=== PATIENT | female | born 1945 | race Caucasian/White ===

== ENCOUNTER → 2022-01-04 | Outpatient (CLI) | payer BC, MEDICARE ==
[2022-01-04 10:04] VITALS: BP 183/82; PULSE 73; RESP 16; TEMP 97.7
== END ==
LOC: PROCWHC3 08:21
PROVIDERS: ATTEND Internal Medicine Geriatric Medicine
DX: K50.90 Crohn's disease, unspecified, without complications (principal); Z93.2 Ileostomy status; E78.5 Hyperlipidemia, unspecified; Z88.5 Allergy status to narcotic agent
CPT/HCPCS: 99213

== ENCOUNTER → 2022-03-15 | Outpatient (CLI) | payer MEDICARE ==
--- NOTE | 2022-03-16 16:24 | BD ---
EXAMINATION TYPE: Axial Bone Density DATE OF EXAM: 03/15/2022 COMPARISON: NONE CLINICAL HISTORY: 76 years year old Female. ICD-10 CODE: M81.0 osteoporosis Height: 65.5 Weight: 186.5 FRAX RISK QUESTIONS: Alcohol (3 or more units per day): NO Family History (Parent hip fracture): YES, MOTHER Glucocorticoids (More than 3mos): NO History of Fracture in Adulthood: NO Secondary Osteoporosis: 1. Type 1 Diabetes: NO 2. Hyperthyroidism: NO 3. Menopause before 45: YES 4. Malnutrition: NO 5. Chronic liver disease: NO Rheumatoid Arthritis: NO Current Tobacco Use: NO RISK FACTORS HISTORY OF: Hip Fracture (Right/Left): NO Spine Fracture: NO History of Wrist Fracture: NO Surgery to Spine/Hip(right/left)/Wrist (right/left): NO Family History of Osteoporosis: NO Active: YES Diet low in dairy products/other sources of calcium: NO Postmenopausal woman: YES Take estrogen and/or progesterone medications: NO Lost more than 2 inches in height since high school: YES Frequent falls: NO Poor Health: NO Hyperparathyroidism: NO Adrenal Insufficiency: NO MEDICATIONS: Prednisone or other steroids: NO Thyroid Medications: NO Osteoporosis Medications: NO Additional Medications: VIT D, Additional History: EXAM MEASUREMENTS: Bone mineral densitometry was performed using the [employer]. Bone mineral density as measured about the Lumbar spine is: ----- L1-L4(G/cm2): 1.294 T Score Values are as follows: ----- L1: 0.0 ----- L2: 0.8 ----- L3: 0.0 ----- L4: 2.7 ----- L1-L4: 1.0 BASELINE STUDY Bone mineral density about the R hip (g/cm2): 0.871 Bone mineral density about the L hip (g/cm2): 0.954 T Score values are as follows: -----R Neck: -1.2 -----L Neck: -0.6 -----R Total: -1.6 -----L Total: -1.4 BASELINE STUDY FRAX%s: The graph provided illustrates a 18.7% chance for a major osteoporotic fx and a 9.2% chance f or the hips probability for fx in 10 years time. IMPRESSION: Osteopenia (T Score between -2.5 and -1). There is slightly increased risk of fracture and the patient may be considered for treatment. Re-Screen 2-5 years. NOTE: T-SCORE=SD OF THE YOUNG ADULT MEAN.
== END | disposition home or self-care (01) ==
LOC: RADBDWWP 08:33
PROVIDERS: ATTEND Internal Medicine Geriatric Medicine
DX: M85.89 Other specified disorders of bone density and structure, multiple sites (principal)
CPT/HCPCS: 77080

== ENCOUNTER → 2023-09-14 | Outpatient (CLI) | payer MEDICARE ==
--- NOTE | 2023-09-17 11:27 | MR ---
EXAMINATION TYPE: MR brain wo/w con DATE OF EXAM: 09/14/2023 2:29 PM COMPARISON: None HISTORY: Fell and hit head, TIA. CONTRAST: Patient received 8 mL intravenous Gadavist gadolinium contrast. Multiplanar and multispin-echo imaging of the brain was performed . Pre and post contrast enhanced i mages are obtained. The ventricles, basal cisterns and sulci overlying the cerebral convexities are mildly enlarged. There is evidence of mild periventricular white matter ischemic demyelination. Remote deep white matter insults are also noted. No acute edema is seen on diffusion weighted imaging. There is no evidence for midline shift or mass effect. Acute intracranial hemorrhage or extra-axial collection is not evident. No enhancing lesions are seen. The paranasal sinuses and mastoid air cells are well-aerated. IMPRESSION: Age-related atrophic and chronic small vessel ischemic change. No acute intracranial process at this time. No enhancing lesions are seen.
== END | disposition home or self-care (01) ==
LOC: RADMRIMAIN 13:34
PROVIDERS: ATTEND Internal Medicine Geriatric Medicine
DX: I67.82 Cerebral ischemia (principal); G31.1 Senile degeneration of brain, not elsewhere classified; G45.9 Transient cerebral ischemic attack, unspecified
CPT/HCPCS: 70553; A9585

== ENCOUNTER → 2023-09-16 | Outpatient (CLI) | payer MEDICARE ==
--- NOTE | 2023-09-16 18:29 | NM ---
EXAMINATION TYPE: NM bone scan whole body DATE OF EXAM: 09/16/2023 COMPARISON: Radiograph 09/10/2023 CLINICAL INDICATION: Female, 77 years old with history of M48.062 spinal stenosis; low back pain. TECHNIQUE: Delayed whole-body scanning was performed following the injection of 25.6 mCi Tc 99m MDP. Images acquired 5.25 hours post injection. FINDINGS: There is S-shaped scoliosis of the lumbar spine. Degenerative tracer activity noted at the bilateral shoulders, base of the thumbs, MCP joints, and extensive throughout the mid and hindfoot regions. The re is also prominent degenerative tracer activity at the left hip. Mild scattered within the knees. Prominent degenerative tracer activity involving the lower lumbar spine. IMPRESSION: 1. Prominent degenerative tracer activity in the lower lumbar spine could reflect facet arthropathy a nd/or degenerative disc disease or L5 spondylolysis. CT for more detailed assessment of the bony kurt deandre if clinically indicated. 2. Additional scattered degenerative tracer activity as outlined above. Also seen prominently within the bilateral mid to hindfoot regions.
== END | disposition home or self-care (01) ==
LOC: RADNMMAIN 07:24
PROVIDERS: ATTEND Physical Medicine & Rehabilitation
DX: M48.062 Spinal stenosis, lumbar region with neurogenic claudication (principal); M43.16 Spondylolisthesis, lumbar region; M41.26 Other idiopathic scoliosis, lumbar region; M51.26 Other intervertebral disc displacement, lumbar region; M47.816 Spondylosis without myelopathy or radiculopathy, lumbar region; M16.12 Unilateral primary osteoarthritis, left hip; S32.030A Wedge compression fracture of third lumbar vertebra, initial encounter for closed fracture; X58.XXXA Exposure to other specified factors, initial encounter
CPT/HCPCS: 78306; A9503

== ENCOUNTER → 2023-12-25 | Outpatient (CLI) | payer MEDICARE ==
--- NOTE | 2023-12-25 16:02 | MR ---
EXAMINATION TYPE: MR brain wo/w con DATE OF EXAM: 12/25/2023 COMPARISON: 09/14/2023 HISTORY: Memory loss. CONTRAST: Performed utilizing 8 mL intravenous Gadavist gadolinium contrast. TECHNIQUE: Multiplanar, multiecho imaging on a 3.0 Kelly magnet is performed through the brain. Stud y is performed within 24 hours of arrival to the hospital. The craniovertebral junction is normal. The pituitary is normal. Diffusion-weighted imaging is performed. No abnormal hyperintensity is present to suggest an acute i ntracranial infarct or acute ischemic change. No suspicious signal abnormality is evident. No abnormal enhancement is evident. Ventricles and sulci are prominent for the patient age. IMPRESSION: 1. No suspicious acute intracranial changes. 2. Chronic age-related changes.
== END | disposition home or self-care (01) ==
LOC: RADMRIMAIN 14:26
PROVIDERS: ATTEND Internal Medicine Geriatric Medicine
DX: R41.3 Other amnesia (principal)
CPT/HCPCS: 70553; A9585

== ENCOUNTER → 2024-06-11 | Outpatient (CLI) | payer MEDICARE ==
--- NOTE | 2024-06-11 14:56 | CT ---
EXAMINATION TYPE: CT brain wo con CT DLP: 995.0 mGycm, Automated exposure control for dose reduction was used. DATE OF EXAM: 06/11/2024 2:11 PM COMPARISON: MRI brain 12/25/2023, 09/14/2023 CLINICAL INDICATION:Female, 78 years old with history of R5 5 SYNCOPE AND COLLAPSE, syncope, fall TECHNIQUE: Brain: Multiple axial CT images of the brain were obtained without IV contrast. . Coronal and sagitta l reformats reviewed. FINDINGS: Brain: Extra-axial spaces: No abnormal extra-axial fluid collections. Ventricular system: Within normal limits Cerebral parenchyma: No acute intraparenchymal hemorrhage or mass effect. The arita-white junction is well differentiated. Scattered hypoattenuating areas are seen within the white matter. Cerebellum: Unremarkable. Mass effect: No evidence of midline shift. Intracranial vasculature: Atherosclerotic calcifications of the intracranial vessels. Soft tissues: Normal. Calvarium/osseous structures: No depressed skull fracture. Benign hyperostosis frontalis noted. Paranasal sinuses and mastoid air cells: Mastoid air cells are clear. Moderate mucosal thickening of the left maxillary sinus with minimal mucosal thickening of the anterior left ethmoid sinus. Partial visualization of likely right inferior maxillary sinus 1.2 cm mucous retention cyst. Visualized orbits: Bilateral aphakia IMPRESSION: 1. No acute intracranial process. 2. Nonspecific white matter changes, likely secondary to chronic small vessel ischemic disease. 3. Paranasal sinus mucosal disease. Most prominent within the left maxillary sinus. [facility], , 06/11/2024 2:21 PM
--- NOTE | 2024-06-11 15:01 | US ---
EXAMINATION TYPE: US carotid duplex BILAT DATE OF EXAM: 06/11/2024 COMPARISON: NONE CLINICAL INDICATION: Female, 78 years old with history of R55 SYNCOPE AND COLLAPSE; dizzy and near sy ncope TECHNIQUE: Grayscale, color Doppler and spectral Doppler evaluation of the bilateral carotid systems and vertebral arteries.Indirect Doppler criteria was utilized. FINDINGS: EXAM MEASUREMENTS: RIGHT: Peak Systolic Velocity (PSV) cm/sec ----- Right CCA: 64.8 ----- Right ICA: 123.0 ----- Right ECA: 82.5 ICA/CCA ratio: 1.9 RIGHT: End Diastole cm/sec ----- Right CCA: 12.6 ----- Right ICA: 33.1 ----- Right ECA: 0.0 LEFT: Peak Systolic Velocity (PSV) cm/sec ----- Left CCA: 78.8 ----- Left ICA: 94.1 ----- Left ECA: 87.6 ICA/CCA ratio: 1.2 LEFT: End Diastole cm/sec ----- Left CCA: 16.4 ----- Left ICA: 20.8 ----- Left ECA: 7.1 VERTEBRALS (direction of flow): Right Vertebral: Retrograde Left Vertebral: Antegrade Rhythm: Normal STATE FIRE MARSHAL NOTES: Mild homogeneous plaque with no stenosis seen IMPRESSION: Right: Less than 50% stenosis of the carotid bifurcation. Normal (no stenosis)=ICA PSV < 125 cm/s: ra yvonne < 2.0: ICA EDV<40 cm/s. Left: Less than 50% stenosis of the carotid bifurcation. Normal (no stenosis)=ICA PSV < 125 cm/s: rat io < 2.0: ICA EDV<40 cm/s. Criteria for Assigning % of Stenosis / Diameter reduction (Estimation based on the indirect measurements of the internal carotid artery velocities (ICA PSV). 1. Normal (no stenosis)=ICA PSV < 125 cm/s: ratio < 2.0: ICA EDV<40 cm/s. 2. Less than 50% stenosis=ICA PSV < 125 cm/s: ratio < 2.0: ICA EDV<40 cm/s. 3. 50 to 69% stenosis=ICA PSV of 125 to 230 cm/s: ration 2.0 ? 4.0: ICA EDV 40-100 cm/s. 4. Greater than 70% stenosis to near occlusion= ICA PSV > 230 cm/s: ratio > 4.0: ICA EDV > 100 cm/s. 5. Near occlusion= ICA PSV velocities may be low or undetectable: variable ratio and ICA EDV. 6. Total occlusion=unable to detect flow. [facility], , 06/11/2024 2:59 PM
== END | disposition home or self-care (01) ==
LOC: RADUSWWP 13:19
PROVIDERS: ATTEND Internal Medicine Geriatric Medicine
CPT/HCPCS: 70450; 93880

== ENCOUNTER → 2024-06-16 | Outpatient (CLI) | payer MEDICARE ==
--- NOTE | 2024-06-17 09:48 | CA ---
Transthoracic Echo Report Name: Jennifer Jaimes Age: 78 Gender: F : 1945 Exam Date: 06/16/2024 13:46 Exam Location: [facility] Ht (in): 68 Wt (lb): 168 Ordering Physician: Donovan Velazco MD Attending/Referring Phys: [employer]che Operator Luisa Brewer RDCS Procedure CPT: Indications: r55 Cardiac Hx: Technical Quality: Fair Contrast 1: Total Dose (mL): Contrast 2: Total Dose (mL): MEASUREMENTS (Male / Female) Normal Values 2D ECHO LV Diastolic Diameter PLAX 5.2 cm 4.2 - 5.9 / 3.9 - 5.3 cm LV Systolic Diameter PLAX 3.8 cm IVS Diastolic Thickness 1.0 cm 0.6 - 1.0 / 0.6 - 0.9 cm LVPW Diastolic Thickness 1.1 cm 0.6 - 1.0 / 0.6 - 0.9 cm LV Relative Wall Thickness 0.4 RV Internal Dim ED PLAX 1.2 cm LA Systolic Diameter LX 3.8 cm 3.0 - 4.0 / 2.7 - 3.8 cm LV Diastolic Volume MOD BP 77.4 cm??? 67 - 155 / 56 - 104 cm??? LV Systolic Volume MOD BP 26.8 cm??? 22 - 58 / 19 - 49 cm??? LV Ejection Fraction MOD BP 65.4 % >= 55 % LV Cardiac Index MOD BP 1527.8 cm???/min???m??? LV Diastolic Volume MOD 4C 82.2 cm??? LV Systolic Volume MOD 4C 28.7 cm??? LV Ejection Fraction MOD 4C 65.1 % LV Cardiac Index MOD 4C 1615.2 cm???/min???m??? LV Diastolic Length 4C 6.4 cm LV Systolic Length 4C 5.6 cm LV Diastolic Volume MOD 2C 73.5 cm??? LV Systolic Volume MOD 2C 24.8 cm??? LV Ejection Fraction MOD 2C 66.2 % LV Cardiac Index MOD 2C 1467.3 cm???/min???m??? LV Diastolic Length 2C 6.5 cm LV Systolic Length 2C 5.8 cm LA Volume 75.5 cm??? 18 - 58 / 22 - 52 cm??? LA Volume Index 39.2 cm???/m??? 16 - 28 cm???/m??? M-MODE Aortic Root Diameter MM 3.5 cm LA Systolic Diameter MM 4.0 cm LA Ao Ratio MM 1.1 AV Cusp Separation MM 2.1 cm DOPPLER AI Peak Velocity 412.2 cm/s AI Peak Gradient 68.0 mmHg AI Pressure Half Time 1030.9 ms MV Area PHT 2.6 cm??? Mitral E Point Velocity 53.5 cm/s Mitral A Point Velocity 76.6 cm/s Mitral E to A Ratio 0.7 MV Deceleration Time 294.2 ms TR Peak Velocity 215.7 cm/s TR Peak Gradient 18.6 mmHg Right Ventricular Systolic Press 28.6 mmHg FINDINGS Left Ventricle Left ventricular ejection fraction is estimated at 55-60 %. Mildly increased posterior wall thickness. Left ventricular cavity size normal. Normal left ventricular systolic function with no obvious regional wall motion abnormalities. Right Ventricle Normal right ventricular size and function. Right ventricular systolic pressure within normal limits. Right Atrium Mild right atrial dilatation. Left Atrium Moderately increased left atrial volume. Mitral Valve Mitral valve thickened. Mild prolapse of both mitral valve leaflets. Mild-to- moderate mitral regurgitation. Aortic Valve Trileaflet aortic valve. No aortic stenosis. Mild aortic regurgitation. Tricuspid Valve Structurally normal tricuspid valve. Mild tricuspid regurgitation. No tricuspid stenosis. Pulmonic Valve Structurally normal pulmonic valve. Trace pulmonic regurgitation. No pulmonic stenosis. Pericardium No pericardial or pleural effusion. Aorta Normal size aortic root and proximal ascending aorta. CONCLUSIONS Normal LV size and systolic function. Mild prolapse of both mitral leaflets with mild to moderate regurgitation. Aortic valve sclerosis with mild aortic regurgitation. Mild tricuspid regurgitation but no pulmonary hypertension. No pericardial effusion Previewed by: Dr. Lizzie Colon MD (Electronically Signed) Final Date: 17 June 2024 09:47
== END | disposition home or self-care (01) ==
LOC: RADECHMAIN 13:29
PROVIDERS: ATTEND Internal Medicine Geriatric Medicine
CPT/HCPCS: 93306

== ENCOUNTER → 2024-07-16 | Outpatient (CLI) | payer MEDICARE ==
--- NOTE | 2024-07-16 13:07 | XR ---
EXAMINATION TYPE: XR chest 2V DATE OF EXAM: 07/16/2024 CLINICAL HISTORY: Cough TECHNIQUE: Frontal and lateral views of the chest are obtained. COMPARISON: None FINDINGS: Hyperinflation compatible with COPD. There is no focal air space opacity, pleural effusion , or pneumothorax seen. The cardiac silhouette size is within normal limits. The osseous structure s are intact. IMPRESSION: No acute cardiopulmonary process. [facility], , 07/16/2024 1:05 PM
== END | disposition home or self-care (01) ==
LOC: RADXRMAIN 12:13
PROVIDERS: ATTEND Internal Medicine Geriatric Medicine
DX: R05.9 Cough, unspecified (principal)
CPT/HCPCS: 71046

== ENCOUNTER 2024-08-22 23:48 | Observation (INO) | payer MEDICARE ==
--- NOTE | 2024-08-23 01:37 | ED ---
General Adult HPI - General Source: patient, EMS Mode of arrival: EMS <Michelle Monk - Last Filed: 08/23/24 01:37> - General Source: patient, EMS Mode of arrival: EMS Limitations: no limitations <Shira Arellano - Last Filed: 08/23/24 17:01> - General Chief complaint: Nausea/Vomiting/Diarrhea Stated complaint: Vomitting Time Seen by Provider: 08/23/24 01:37 - History of Present Illness Initial comments: 78-year-old female presenting with chief complaint of nausea and vomiting. Symptoms started around 8 PM today. No chest pain or difficulty breathing. No hematemesis. No fever. (Michelle Monk) 78-year-old female presents to the emergency department for evaluation of nausea and vomiting. Patient reports that started around 8 PM. She has a history of an ostomy and has been having normal output prior to the vomiting she states that she has had some decrease in output since she started vomiting which she believes is due to her not eating or drinking. She denies any focal abdominal pain. She does note that she had pain between her shoulder blades which is since subsided. Denies any recent fever, chills. (Shira Arellano) - Related Data Home Medications Medication Instructions Recorded Confirmed Acetaminophen-Codeine 300-30mg 1 tab PO Q6H PRN 08/23/24 08/23/24 [Tylenol w/codeine #3] Donepezil [Aricept] 5 mg PO HS 08/23/24 08/23/24 Pregabalin [Lyrica] 75 mg PO BID 08/23/24 08/23/24 Rivastigmine Tartrate 1.5 mg PO BID-W/MEALS 08/23/24 08/23/24 [Rivastigmine] busPIRone HCL [Buspar] 7.5 mg PO TID 08/23/24 08/23/24 Allergies Allergy/AdvReac Type Severity Reaction Status Date / Time propoxyphene [From Darvon] Allergy Anaphylaxis Verified 08/23/24 10:27 Review of Systems ROS Other: All systems not noted in ROS Statement are negative. <Michelle Monk - Last Filed: 08/23/24 01:37> ROS Other: All systems not noted in ROS Statement are negative. <Shira Arellano - Last Filed: 08/23/24 17:01> ROS Statement: Those systems with pertinent positive or pertinent negative responses have been documented in the HPI. Past Medical History Additional Past Medical History / Comment(s): Chrons History of Any Multi-Drug Resistant Organisms: None Reported Past Surgical History: Adenoidectomy, Tonsillectomy Past Anesthesia/Blood Transfusion Reactions: No Reported Reaction Past Psychological History: No Psychological Hx Reported Smoking Status: Never smoker Past Alcohol Use History: None Reported Past Drug Use History: None Reported <Michelle Monk - Last Filed: 08/23/24 01:37> General Exam <Michelle Monk - Last Filed: 08/23/24 01:37> Limitations: no limitations General appearance: alert, in no apparent distress Head exam: Present: atraumatic, normocephalic, normal inspection Eye exam: Present: normal appearance, PERRL, EOMI. Absent: scleral icterus, conjunctival injection, periorbital swelling ENT exam: Present: normal exam, mucous membranes moist Neck exam: Present: normal inspection. Absent: tenderness, meningismus, lym phadenopathy Respiratory exam: Present: normal lung sounds bilaterally. Absent: respiratory distress, wheezes, rales, rhonchi, stridor Cardiovascular Exam: Present: normal heart sounds. Absent: normal rhythm GI/Abdominal exam: Present: soft. Absent: distended, tenderness, guarding, rebound, rigid Extremities exam: Present: normal inspection, full ROM, normal capillary refill. Absent: tenderness, pedal edema, joint swelling, calf tenderness Neurological exam: Present: alert, oriented X3 Psychiatric exam: Present: normal affect, normal mood Skin exam: Present: warm, dry, intact, normal color. Absent: rash <Shira Arellano - Last Filed: 08/23/24 17:01> - General Exam Comments Initial Comments: Visual Physical Exam Vital signs reviewed General: Well-appearing, nontoxic, no acute distress. Head: Normocephalic, atraumatic Eyes: PERRLA, EOMI ENT: Airway patent Chest: Nonlabored breathing Skin: No visual rash, normal skin tone Neuro: Alert and oriented 3 Musculoskeletal: No gross abnormalities (Michelle Monk) Course Vital Signs 08/22/24 08/23/24 08/23/24 23:57 07:00 09:00 Temperature 97.5 F L 98 F 98 F Pulse Rate 98 61 67 Respiratory 20 16 16 Rate Blood Pressure 158/60 114/74 116/78 O2 Sat by Pulse 97 100 100 Oximetry 08/23/24 08/23/24 12:00 15:35 Temperature 98 F Pulse Rate 61 64 Respiratory 16 16 Rate Blood Pressure 105/57 153/69 O2 Sat by Pulse 100 99 Oximetry Medical Decision Making <Michelle Monk - Last Filed: 08/23/24 01:37> - Lab Data Result diagrams: 08/23/24 02:10 08/23/24 02:10 <Shira Arellano - Last Filed: 08/23/24 17:01> - Medical Decision Making I performed the quick note portion of this visit, electronically signed Michelle Monk PA-C (Michelle Monk) Was pt. sent in by a medical professional or institution ([facility], SKILLS AUDITOR, urgent care, hospital, or [facility]...) When possible be specific @ -No Did you speak to anyone other than the patient for history (EMS, parent, family, police, friend...)? What history was obtained from this source @ -No Did you review nursing and triage notes (agree or disagree)? Why? @ -I reviewed and agree with nursing and triage notes Were old charts reviewed (outside hosp., previous admission, EMS record, old EKG, old radiological studies, urgent care reports/EKG's, [facility] records)? Report findings @ -No old charts were reviewed Differential Diagnosis (chest pain, altered mental status, abdominal pain women, abdominal pain men, vaginal bleeding, weakness, fever, dyspnea, syncope, headache, dizziness, GI bleed, back pain, seizure, CVA, palpatations, mental health, musculoskeletal)? @ -Gastroenteritis, COVID, influenza, RSV, cholecystitis, this list is not all inclusive EKG interpreted by me (3pts min.). @ -EKG at 717 shows irregular rhythm rate of 67, QRS 25, QTQTc 439/455 P waves present Repeat EKG 758 shows irregular rhythm rate 78, QRS 103, QTQTc [id number] findings concerning for A-fib without distinct P waves X-rays interpreted by me (1pt min.). @ -Chest x-ray shows Subtle increased airspace opacities in the right lung base CT interpreted by me (1pt min.). @ -CT chest shows no evidence of acute PE, no evidence of focal consolidation U/S interpreted by me (1pt. min.). @ -None done What testing was considered but not performed or refused? (CT, X-rays, U/S, la bs)? Why? @ -None What meds were considered but not given or refused? Why? @ -None Did you discuss the management of the patient with other professionals (professionals i.e. , PA, SKILLS AUDITOR, lab, RT, psych nurse, social insurance analyst, event operations manager, teacher, dispatch officer, welfare case worker)? Give summary @ -Management discussed with Dr. Castro with [facility] was accepting of the admission as Dr. Velazco is off Was smoking cessation discussed for >3mins.? @ -No Was critical care preformed (if so, how long)? @ -No Were there social determinants of health that impacted care today? How? (Homelessness, low income, unemployed, alcoholism, drug addiction, transportation, low edu. Level, literacy, decrease access to med. care, [facility], rehab)? @ -No Was there de-escalation of care discussed even if they declined (Discuss DNR or withdrawal of care, Hospice)? DNR status @ -No What co-morbidities impacted this encounter? (DM, HTN, Smoking, COPD, CAD, Cancer, CVA, ARF, Chemo, Hep., AIDS, mental health diagnosis, sleep apnea, morbid obesity)? @ -None Was patient admitted / discharged? Hospital course, mention meds given and route, prescriptions, significant lab abnormalities, going to OR and other pertinent info. @ -Admitted. Patient presented to the emergency department for evaluation of pain between her shoulder blades, nausea, vomiting. Laboratory studies were obtained and the patient was in the waiting room There is no significant leukocytosis, hemoglobin stable; CMP essentially unremarkable; UA shows 1+ ketones, small leukocyte esterase, 7 WBCs, patient is not having any urinary symptoms at this time. Following my evaluation in the a.m. patient reporting pain between her shoulder blades and into her chest therefore an EKG was performed along with a troponin. Initial troponin was negative EKG was concerning for new onset A-fib and therefore the patient was started on low-dose heparin. She was also tested for COVID, influenza, RSV which were negative. Chest x-ray shows increased airspace opacities in the right lung base. CT chest for PE was performed which shows no evidence of any this airspace opacity does not appear to be present on the CT. patient will be admitted for observation for new onset A-fib and evaluation by cardiology. The case was discussed with [facility] who is accepting of the admission. Case discussed with Dr. Rangel Undiagnosed new problem with uncertain prognosis? @ -No Drug Therapy requiring intensive monitoring for toxicity (Heparin, Nitro, Insulin, Cardizem)? @ -Heparin Were any procedures done? @ -No Diagnosis/symptom? @ -New onset A-fib Acute, or Chronic, or Acute on Chronic? @ -Acute Uncomplicated (without systemic symptoms) or Complicated (systemic symptoms)? @ -complicated Side effects of treatment? @ -No Exacerbation, Progression, or Severe Exacerbation? @ -No Poses a threat to life or bodily function? How? (Chest pain, [place], [place], pneumonia, PE, COPD, DKA, ARF, appy, cholecystitis, CVA, Diverticulitis, Homicidal, Suicidal, threat to staff... and all critical care pts) @ -No (Shira Arellano) - Lab Data Lab Results 08/23/24 08/23/24 08/23/24 Range/Units 02:10 02:10 02:20 WBC 9.5 (3.8-10.6) k/uL RBC 4.25 (3.80-5.40) m/uL Hgb 12.7 (11.4-16.0) gm/dL Hct 38.4 (34.0-46.0) % MCV 90.2 (80.0-100.0) fL MCH 29.8 (25.0-35.0) pg MCHC 33.0 (31.0-37.0) g/dL RDW 13.4 (11.5-15.5) % Plt Count 189 (150-450) k/uL MPV 8.3 Neutrophils % 84 % Lymphocytes % 10 % Monocytes % 4 % Eosinophils % 1 % Basophils % 0 % Neutrophils # 8.0 H (1.3-7.7) k/uL Lymphocytes # 1.0 (1.0-4.8) k/uL Monocytes # 0.4 (0-1.0) k/uL Eosinophils # 0.1 (0-0.7) k/uL Basophils # 0.0 (0-0.2) k/uL PT (10.0-12.5) sec INR (<1.2) APTT (22.0-30.0) sec Sodium 137 (137-145) mmol/L Potassium 4.6 (3.5-5.1) mmol/L Chloride 103 (98-107) mmol/L Carbon Dioxide 24 (22-30) mmol/L Anion Gap 10 mmol/L BUN 22 H (7-17) mg/dL Creatinine 0.76 (0.52-1.04) mg/dL Est GFR (CKD-EPI)AfAm 86 (>60 ml/min/1.73 sqM) Est GFR (CKD-EPI)NonAf 75 (>60 ml/min/1.73 sqM) Glucose 136 H (74-99) mg/dL Calcium 9.2 (8.4-10.2) mg/dL Total Bilirubin 1.2 (0.2-1.3) mg/dL AST 24 (14-36) U/L ALT 12 (4-34) U/L Alkaline Phosphatase 60 (38-126) U/L Troponin I (0.000-0.034) ng/mL Total Protein 7.1 (6.3-8.2) g/dL Albumin 4.4 (3.5-5.0) g/dL Amylase 56 (30-110) U/L Lipase 198 (23-300) U/L Urine Color Colorless Urine Appearance Clear (Clear) Urine pH 6.0 (5.0-8.0) Ur Specific [place] 1.017 (1.001-1.035) Urine Protein Negative (Negative) Urine Glucose (UA) 2+ H (Negative) Urine Ketones 1+ H (Negative) Urine Blood Negative (Negative) Urine Nitrite Negative (Negative) Urine Bilirubin Negative (Negative) Urine Urobilinogen <2.0 (<2.0) mg/dL Ur Leukocyte Esterase Small H (Negative) Urine RBC 1 (0-5) /hpf Urine WBC 7 H (0-5) /hpf Ur Squamous Epith Cells 4 (0-4) /hpf Amorphous Sediment Rare H (None) /hpf Urine Mucus Rare H (None) /hpf Influenza Type A (PCR) (Not Detectd) Influenza Type B (PCR) (Not Detectd) RSV (PCR) (Not Detectd) SARS-CoV-2 (PCR) (Not Detectd) 08/23/24 08/23/24 08/23/24 Range/Units 07:12 07:52 09:53 WBC (3.8-10.6) k/uL RBC (3.80-5.40) m/uL Hgb (11.4-16.0) gm/dL Hct (34.0-46.0) % MCV (80.0-100.0) fL MCH (25.0-35.0) pg MCHC (31.0-37.0) g/dL RDW (11.5-15.5) % Plt Count (150-450) k/uL MPV Neutrophils % % Lymphocytes % % Monocytes % % Eosinophils % % Basophils % % Neutrophils # (1.3-7.7) k/uL Lymphocytes # (1.0-4.8) k/uL Monocytes # (0-1.0) k/uL Eosinophils # (0-0.7) k/uL Basophils # (0-0.2) k/uL PT 10.9 (10.0-12.5) sec INR 1.0 (<1.2) APTT 19.2 L (22.0-30.0) sec Sodium (137-145) mmol/L Potassium (3.5-5.1) mmol/L Chloride (98-107) mmol/L Carbon Dioxide (22-30) mmol/L Anion Gap mmol/L BUN (7-17) mg/dL Creatinine (0.52-1.04) mg/dL Est GFR (CKD-EPI)AfAm (>60 ml/min/1.73 sqM) Est GFR (CKD-EPI)NonAf (>60 ml/min/1.73 sqM) Glucose (74-99) mg/dL Calcium (8.4-10.2) mg/dL Total Bilirubin (0.2-1.3) mg/dL AST (14-36) U/L ALT (4-34) U/L Alkaline Phosphatase (38-126) U/L Troponin I <0.012 (0.000-0.034) ng/mL Total Protein (6.3-8.2) g/dL Albumin (3.5-5.0) g/dL Amylase (30-110) U/L Lipase (23-300) U/L Urine Color Urine Appearance (Clear) Urine pH (5.0-8.0) Ur Specific [place] (1.001-1.035) Urine Protein (Negative) Urine Glucose (UA) (Negative) Urine Ketones (Negative) Urine Blood (Negative) Urine Nitrite (Negative) Urine Bilirubin (Negative) Urine Urobilinogen (<2.0) mg/dL Ur Leukocyte Esterase (Negative) Urine RBC (0-5) /hpf Urine WBC (0-5) /hpf Ur Squamous Epith Cells (0-4) /hpf Amorphous Sediment (None) /hpf Urine Mucus (None) /hpf Influenza Type A (PCR) Not Detected (Not Detectd) Influenza Type B (PCR) Not Detected (Not Detectd) RSV (PCR) Not Detected (Not Detectd) SARS-CoV-2 (PCR) Not Detected (Not Detectd) Disposition <Michelle Monk - Last Filed: 08/23/24 01:37> Is patient prescribed a controlled substance at d/c from ED?: No <Shira Arellano - Last Filed: 08/23/24 17:01> Clinical Impression: New onset a-fib, Nausea and vomiting Disposition: ADMITTED IP TO THIS HOSP Condition: Stable
[2024-08-23 02:34] LABS: Basophils % (A) 0 %; Eosinophils # (A) 0.1 k/uL (0-0.7); Eosinophils % (A) 1 %; HCT 38.4 % (34.0-46.0); HGB 12.7 gm/dL (11.4-16.0); Lymphocytes % (A) 10 %; MCH 29.8 pg (25.0-35.0); MCV 90.2 fL (80.0-100.0); Mean Platelet Volume 8.3; Monocytes # (A) 0.4 k/uL (0-1.0); Monocytes % (A) 4 %; Neutrophils % (A) 84 %; Platelet Count 189 k/uL (150-450); RBC 4.25 m/uL (3.80-5.40); RDW 13.4 % (11.5-15.5); WBC 9.5 k/uL (3.8-10.6)
[2024-08-23 02:45] LABS: ALT 12 U/L (4-34); African American GFR (CKD) 86 (>60 ml/min/1.73 sqM); Albumin 4.4 g/dL (3.5-5.0); Amylase 56 U/L (30-110); Anion Gap 10 mmol/L; Blood Urea Nitrogen 22 mg/dL (7-17); Calcium 9.2 mg/dL (8.4-10.2); Carbon Dioxide 24 mmol/L (22-30); Chloride 103 mmol/L (98-107); Glucose 136 mg/dL (74-99); Lipase 198 U/L (23-300); Non-African American GFR(CKD) 75 (>60 ml/min/1.73 sqM); Sodium 137 mmol/L (137-145); Total Bilirubin 1.2 mg/dL (0.2-1.3); Total Protein 7.1 g/dL (6.3-8.2)
[2024-08-23 02:48] LABS: Amorphous Sediment,Urine Rare /hpf; Appearance,Urine Clear (Clear); Bilirubin,Urine Negative (Negative); Blood,Urine Negative (Negative); Color,Urine Colorless; Glucose,Urine (UA) 2+ (Negative); Ketones,Urine 1+ (Negative); Leukocyte Esterase,Urine Small (Negative); Mucus,Urine Rare /hpf; Nitrite,Urine Negative (Negative); Protein,Urine Negative (Negative); RBC,Urine 1 /hpf (0-5); Specific Gravity,Urine 1.017 (1.001-1.035); Squamous Epithelial Cell,Urine 4 /hpf (0-4); Urobilinogen,Urine <2.0 mg/dL (<2.0); WBC,Urine 7 /hpf (0-5)
[2024-08-23 02:51] LABS: AST 24 U/L (14-36); Alkaline Phosphatase 60 U/L (38-126); Potassium 4.6 mmol/L (3.5-5.1)
[2024-08-23] MEDS: SODIUM CHLORIDE 0.9% 1,000 ML IV ONE (07:29)
--- NOTE | 2024-08-23 08:25 | XR ---
EXAMINATION TYPE: XR chest 2V DATE OF EXAM: 08/23/2024 8:21 AM COMPARISON: Chest radiographs from 07/16/2024 CLINICAL INDICATION: Female, 78 years old with history of pain; [facility] TECHNIQUE: XR chest 2V Frontal and lateral views of the chest. FINDINGS: Lungs/Pleura: Right lung base subtle airspace opacities new from 07/16/2024 There is no evidence of p leural effusion, focal consolidation, or pneumothorax. Pulmonary vascularity: Unremarkable. Heart/mediastinum: Cardiomediastinal silhouette is unremarkable. Musculoskeletal: No acute osseous pathology. IMPRESSION: Subtle increased airspace opacities in right lung base correlate for developing pneumonia [facility], , 08/23/2024 8:22 AM
[2024-08-23 09:14] VITALS: TEMP 98
[2024-08-23] MEDS ORDERED: HEPARIN SODIUM 1,000 UN/ML (10ML VL) IV PRN (09:19)
--- NOTE | 2024-08-23 09:30 | CT ---
EXAMINATION TYPE: CT chest angio for PE DATE OF EXAM: 08/23/2024 9:09 AM COMPARISON: Chest radiograph from same day. CLINICAL INDICATION: Female, 78 years old with history of pain, new afib; chest pain TECHNIQUE/CONTRAST: CTA scan of the thorax is performed with IV Contrast, patient injected with 70 mL of Isovue 370, MIP images are created and reviewed these are created on a separate workstation.. CT DLP: 307.9 mGycm, Automated exposure control for dose reduction was used. FINDINGS: Lungs/Pleura: No evidence of focal consolidation, pleural effusion or pneumothorax. Airway: Large airways are patent. Heart: Heart is within normal limits for size. Vasculature: There is no evidence for a filling defect within the pulmonary vasculature to suggest ac [place] pulmonary embolism. The pulmonary artery is of normal size. Mediastinum: No gross evidence of adenopathy. Musculoskeletal: Moderate degenerative disc disease changes are present throughout the thoracolumbar spine. Soft Tissues/lymph nodes: Unremarkable. Lower neck: No significant findings. Upper Abdomen: No significant findings. IMPRESSION: No evidence of pulmonary embolism. [facility], , 08/23/2024 9:28 AM
[2024-08-23 10:16] LABS: Prothrombin Time 10.9 sec (10.0-12.5)
[2024-08-23 10:20] LABS: Partial Thromboplastin Time 19.2 sec (22.0-30.0)
[2024-08-23] MEDS ORDERED: NALOXONE 0.4 MG/ML 1 ML VIAL IV PRN (10:34)
[2024-08-23] MEDS ORDERED: MORPHINE SULFATE 4 MG/ML SYRINGE IV PRN (10:34)
[2024-08-23] MEDS ORDERED: ONDANSETRON 4 MG/2 ML VIAL IVP PRN (10:34)
[2024-08-23] MEDS ORDERED: ACETAMINOPHEN TAB 325 MG TAB PO PRN (10:34)
[2024-08-23] MEDS: SODIUM CHLORIDE 0.9% 1,000 ML IV SCH (11:12)
[2024-08-23] MEDS: HEPARIN SOD,PORK IN 0.45% NACL 25,000 UNIT in 0.45% NACL 1 250ML.BAG IV SCH (11:22)
[2024-08-23] MEDS: HEPARIN SODIUM 1,000 UN/ML (10ML VL) IV ONE (11:23)
--- NOTE | 2024-08-23 13:54 | P.CRDCN ---
History of Present Illness History of present illness: HISTORY OF PRESENT ILLNESS: This is a 78-year-old female with a past medical history significant for Crohn's disease and ostomy creation. Patient does not follow with a honey extractor. We h ave been asked to see the patient in consultation for new onset atrial fibrillation. Patient examined at the bedside in the emergency room. Patient initially presented to the hospital for chief complaint of nausea and vomiting. The patient did receive Zofran with improvement of her symptoms. An EKG was completed which was interpreted by the computer as atrial fibrillation. The patient was started on IV heparin. Upon review of EKGs, patient appears to be in sinus mechanism with PVCs. The patient is currently not on a groundwater monitoring technician in the emergency room due to no available telemetry rooms. Upon auscultation, patient's heart rate does appear to be irregular which could be sinus with PACs rather than atrial fibrillation. DIAGNOSTICS: - EKG reveals sinus mechanism with no signs of acute ischemia - Chest xray subtle increased airspace opacities in right lung base correlate for developing pneumonia - Chest CTA: Negative for pulmonary embolism - Laboratory data: WBC 9.5. Hemoglobin 12.7. Platelet count 189. Sodium 137. Potassium 4.6. BUN 22. Creatinine 0.76. Troponin negative x 1. - Current home cardiac medications include none - Patient underwent echocardiogram in May 2024 revealing ejection fraction 55 to 60% with mild aortic regurgitation, mild TR, and mild to moderate MR - Cardiac catheterization history: Patient denies REVIEW OF SYSTEMS: At the time of my exam: CONSTITUTIONAL: Denies fever or chills. HEENT: Denies blurred vision, vision changes, or eye pain. Denies hemoptysis CARDIOVASCULAR: Denies chest pain. Denies orthopnea. Denies PND. Denies palp itations RESPIRATORY: Denies shortness of breath. GASTROINTESTINAL: Denies abdominal pain. Denies nausea or vomiting. HEMATOLOGIC: Denies bleeding disorders. GENITOURINARY: Denies any blood in urine. SKIN: Denies pruitis. Denies rash. PHYSICAL EXAM: VITAL SIGNS: Reviewed. GENERAL: Well-developed in no acute distress. HEENT: Head is normocephalic. Pupils are equal, round. Sclerae anicteric. Mucous membranes of the mouth are moist. Neck supple. No JVD or thyromegaly LUNGS: Respirations even and unlabored. Lungs essentially clear to auscultation bilaterally. HEART: Regular rate and rhythm. S1 and S2 heard. ABDOMEN: Soft. Nondistended. Nontender. EXTREMITIES: Normal range of motion. No clubbing or cyanosis. Peripheral pulses intact. No lower extremity edema NEUROLOGIC: Awake and alert. Oriented x 3. ASSESSMENT: Nausea and vomiting History of Crohn's disease with ostomy creation Atrial fibrillation, ruled out, EKG and telemetry reveal SR PACs PLAN: Patient was moved to a bed with telemetry monitoring. Bedside telemetry reveals sinus mechanism with PACs. EKG also reveals sinus mechanism Discontinue IV heparin. Cardiology will sign off. Please reconsult if needed. Nurse practitioner note has been reviewed by physician. Signing provider agrees with the documented findings, assessment, and plan of care documented by PATCHING MACHINE OPERATOR as a scribe. Past Medical History Additional Past Medical History / Comment(s): Chrons History of Any Multi-Drug Resistant Organisms: None Reported Past Surgical History: Adenoidectomy, Tonsillectomy Past Anesthesia/Blood Transfusion Reactions: No Reported Reaction Past Psychological History: No Psychological Hx Reported Smoking Status: Never smoker Past Alcohol Use History: None Reported Past Drug Use History: None Reported Medications and Allergies Home Medications Medication Instructions Recorded Confirmed Type Acetaminophen-Codeine 300-30mg 1 tab PO Q6H PRN 08/23/24 08/23/24 History [Tylenol w/codeine #3] Donepezil [Aricept] 5 mg PO HS 08/23/24 08/23/24 History Pregabalin [Lyrica] 75 mg PO BID 08/23/24 08/23/24 History Rivastigmine Tartrate 1.5 mg PO BID-W/MEALS 08/23/24 08/23/24 History [Rivastigmine] busPIRone HCL [Buspar] 7.5 mg PO TID 08/23/24 08/23/24 History Allergies Allergy/AdvReac Type Severity Reaction Status Date / Time propoxyphene [From Darvon] Allergy Anaphylaxis Verified 08/23/24 10:27 Physical Exam Vitals: Vital Signs Temp Pulse Resp BP Pulse Ox 08/23/24 12:00 98 F 61 16 105/57 100 08/23/24 09:00 98 F 67 16 116/78 100 08/23/24 07:00 98 F 61 16 114/74 100 08/22/24 23:57 97.5 F L 98 20 158/60 97 Intake and Output 08/22/24 08/23/24 08/23/24 22:59 06:59 14:59 Other: Weight 68.039 kg Results 08/23/24 02:10 08/23/24 02:10 Cardiac Enzymes 08/23/24 08/23/24 Range/Units 02:10 07:12 AST 24 (14-36) U/L Troponin I <0.012 (0.000-0.034) ng/mL Coagulation 08/23/24 Range/Units 09:53 PT 10.9 (10.0-12.5) sec APTT 19.2 L (22.0-30.0) sec CBC 08/23/24 Range/Units 02:10 WBC 9.5 (3.8-10.6) k/uL RBC 4.25 (3.80-5.40) m/uL Hgb 12.7 (11.4-16.0) gm/dL Hct 38.4 (34.0-46.0) % Plt Count 189 (150-450) k/uL Comprehensive Metabolic Panel 08/23/24 Range/Units 02:10 Sodium 137 (137-145) mmol/L Potassium 4.6 (3.5-5.1) mmol/L Chloride 103 (98-107) mmol/L Carbon Dioxide 24 (22-30) mmol/L BUN 22 H (7-17) mg/dL Creatinine 0.76 (0.52-1.04) mg/dL Glucose 136 H (74-99) mg/dL Calcium 9.2 (8.4-10.2) mg/dL AST 24 (14-36) U/L ALT 12 (4-34) U/L Alkaline Phosphatase 60 (38-126) U/L Total Protein 7.1 (6.3-8.2) g/dL Albumin 4.4 (3.5-5.0) g/dL Current Medications Generic Name Dose Route Start Last Admin Trade Name Freq PRN Reason Stop Dose Admin Acetaminophen 650 mg 08/23/24 10:34 Acetaminophen Tab 325 Mg Tab PO Q6HR PRN Mild Pain or Fever > 100.5 Heparin Sodium (Porcine) 0 unit 08/23/24 09:19 Heparin Sodium 1,000 Un/Ml (10ml Vl) IV PER PROTOCOL PRN Low PTT Protocol Heparin Sodium/Sodium Chloride 250 mls @ 8.165 mls/hr 08/23/24 09:30 08/23/24 11:22 25,000 unit/ Sodium Chloride IV 12 units/kg/hr .Q24H MONA 8.165 mls/hr Administration Protocol 12 UNITS/KG/HR Sodium Chloride 1,000 mls @ 75 mls/hr 08/23/24 10:45 08/23/24 11:12 Saline 0.9% IV 75 mls/hr .[id number] MONA Administration Morphine Sulfate 4 mg 08/23/24 10:34 Morphine Sulfate 4 Mg/Ml Syringe IV Q4HR PRN Severe Pain (Scale 7 to 10) Naloxone HCl 0.2 mg 08/23/24 10:34 Naloxone 0.4 Mg/Ml 1 Ml Vial IV Q2M PRN Opioid Reversal Ondansetron HCl 4 mg 08/23/24 10:34 Ondansetron 4 Mg/2 Ml Vial IVP Q8HR PRN Nausea And Vomiting Intake and Output 08/22/24 08/23/24 08/23/24 22:59 06:59 14:59 Other: Weight 68.039 kg 08/23/24 02:10 08/23/24 02:10
--- NOTE | 2024-08-23 17:07 | P.HPIM ---
History of Present Illness H&P Date: 08/23/24 History of present illness: 78-year-old female with past medical history significant for Alzheimer's dementia, history of chron's disease, colostomy, who presented to ED initially for nausea and vomiting which started yesterday around 8 PM. Patient reported that she had normal output prior to vomiting and later on noticed decreased output since she started to vomit. Patient denied any abdominal pain or diarrhea. Patient denied any fever or chills. Patient denied any sick contacts. Son at the bedside reported that patient was having a lot of stress at home. In the ED there was some concern for atrial fibrillation initially which was later on ruled out. Patient was initially started on heparin drip, later on discontinued per cardiology. Patient is afebrile, heart rate 98, R improved to 64, respiratory rate 20, blood pressure 150/60, saturating 97% on room air. CBC unremarkable, CMP unremarkable. Troponin negative. UA negative. Viral panel negative. CT chest negative for any acute process or PE. REVIEW OF SYSTEMS: CONSTITUTIONAL: No fever, no malaise, no fatigue. HEENT: No recent visual problems or hearing problems. Denied any sore throat. CARDIOVASCULAR: No chest pain, orthopnea, PND, no palpitations, no syncope. PULMONARY: No shortness of breath, no cough, no hemoptysis. GASTROINTESTINAL: No diarrhea, no nausea, no vomiting, no abdominal pain. NEUROLOGICAL: No headaches, no weakness, no numbness. HEMATOLOGICAL: Denies any bleeding or petechiae. GENITOURINARY: Denies any burning micturition, frequency, or urgency. MUSCULOSKELETAL/RHEUMATOLOGICAL: Denies any joint pain, swelling, or any muscle pain. ENDOCRINE: Denies any polyuria or polydipsia. The rest of the 14-point review of systems is negative. PHYSICAL EXAMINATION: GENERAL: The patient is A&O x3, NAD HEENT: EOMI, Sclerae anicteric, Moist Mucous membranes Neck: Supple, Non tender, No JVD PULMONARY: Equal breath souds B/L, No wheezing, No crackles. CARDIOVASCULAR: S1, S2 present. No murmurs, rubs, or gallops. ABDOMEN: Soft, nontender, nondistended, normoactive bowel sounds. No guarding or rebound tenderness. MUSCULOSKELETAL: No edema, No cyanosis. No clubbing. Normal ROM. Intact peripher al pulses. NEUROLOGICAL: CN 2-12 grossly intact. No FND Assessment and plan: Nausea and vomiting: Symptoms are improving Continue symptomatic management with antiemetics IV fluids Monitor I&O's Atrial fibrillation: Ruled out EKG and telemetry showed sinus rhythm with PACs Heparin days discontinued Cardiology consulted, appreciate recs, signed off. Alzheimer's dementia: Resume home meds DVT prophylaxis Subcutaneous Lovenox Monitor vital signs and labs Labs and medication were reviewed. Continue same treatment. Further recommendations as per clinical course of the patient Dictation was produced using [employer] dictation software. please excuse any grammatical, word or spelling errors. Past Medical History Additional Past Medical History / Comment(s): Chrons History of Any Multi-Drug Resistant Organisms: None Reported Past Surgical History: Adenoidectomy, Tonsillectomy Past Anesthesia/Blood Transfusion Reactions: No Reported Reaction Past Psychological History: No Psychological Hx Reported Smoking Status: Never smoker Past Alcohol Use History: None Reported Past Drug Use History: None Reported Medications and Allergies Home Medications Medication Instructions Recorded Confirmed Type Acetaminophen-Codeine 300-30mg 1 tab PO Q6H PRN 08/23/24 08/23/24 History [Tylenol w/codeine #3] Donepezil [Aricept] 5 mg PO HS 08/23/24 08/23/24 History Pregabalin [Lyrica] 75 mg PO BID 08/23/24 08/23/24 History Rivastigmine Tartrate 1.5 mg PO BID-W/MEALS 08/23/24 08/23/24 History [Rivastigmine] busPIRone HCL [Buspar] 7.5 mg PO TID 08/23/24 08/23/24 History Allergies Allergy/AdvReac Type Severity Reaction Status Date / Time propoxyphene [From Darvon] Allergy Anaphylaxis Verified 08/23/24 10:27 Physical Exam Vitals: Vital Signs Temp Pulse Resp BP Pulse Ox 08/23/24 15:35 64 16 153/69 99 08/23/24 12:00 98 F 61 16 105/57 100 08/23/24 09:00 98 F 67 16 116/78 100 08/23/24 07:00 98 F 61 16 114/74 100 08/22/24 23:57 97.5 F L 98 20 158/60 97 Intake and Output 08/23/24 08/23/24 08/23/24 06:59 14:59 22:59 Other: Weight 68.039 kg Results CBC & Chem 7: 08/23/24 02:10 08/23/24 02:10 Labs: Abnormal Lab Results - Last 24 Hours (Table) 08/23/24 08/23/24 08/23/24 Range/Units 02:10 02:10 02:20 Neutrophils # 8.0 H (1.3-7.7) k/uL APTT (22.0-30.0) sec BUN 22 H (7-17) mg/dL Glucose 136 H (74-99) mg/dL Urine Glucose (UA) 2+ H (Negative) Urine Ketones 1+ H (Negative) Ur Leukocyte Esterase Small H (Negative) Urine WBC 7 H (0-5) /hpf Amorphous Sediment Rare H (None) /hpf Urine Mucus Rare H (None) /hpf 08/23/24 Range/Units 09:53 Neutrophils # (1.3-7.7) k/uL APTT 19.2 L (22.0-30.0) sec BUN (7-17) mg/dL Glucose (74-99) mg/dL Urine Glucose (UA) (Negative) Urine Ketones (Negative) Ur Leukocyte Esterase (Negative) Urine WBC (0-5) /hpf Amorphous Sediment (None) /hpf Urine Mucus (None) /hpf
[2024-08-23] MEDS ORDERED: RIVASTIGMINE TARTRATE 1.5 MG PO SCH (17:30)
[2024-08-23] MEDS: PREGABALIN 75 MG CAP PO SCH (20:51)
[2024-08-23] MEDS: DONEPEZIL 5 MG TAB PO SCH (20:52)
[2024-08-23] MEDS: busPIRone HCl 5 MG TAB PO SCH (21:00)
[2024-08-24 06:38] LABS: Basophils % (A) 0 %; Eosinophils # (A) 0.2 k/uL (0-0.7); Eosinophils % (A) 5 %; HCT 33.7 % (34.0-46.0); HGB 11.1 gm/dL (11.4-16.0); Lymphocytes # (A) 1.2 k/uL (1.0-4.8); Lymphocytes % (A) 29 %; MCH 29.7 pg (25.0-35.0); MCV 90.2 fL (80.0-100.0); Mean Platelet Volume 7.4; Monocytes # (A) 0.2 k/uL (0-1.0); Monocytes % (A) 5 %; Neutrophils # (A) 2.5 k/uL (1.3-7.7); Neutrophils % (A) 60 %; Platelet Count 182 k/uL (150-450); RBC 3.74 m/uL (3.80-5.40); RDW 13.4 % (11.5-15.5); WBC 4.1 k/uL (3.8-10.6)
[2024-08-24 06:49] LABS: Prothrombin Time 10.7 sec (10.0-12.5)
[2024-08-24 14:07] VITALS: BP 156/81; PULSE 65; RESP 16
== END 2024-08-24 14:15 | disposition home or self-care (01) ==
LOC: EC 23:48 → 3SCARD 08-23 10:28
PROVIDERS: ADMIT Internal Medicine; ATTEND Internal Medicine
DX: I49.1 Atrial premature depolarization (principal); R11.2 Nausea with vomiting, unspecified; Z93.3 Colostomy status; I49.3 Ventricular premature depolarization; I08.3 Combined rheumatic disorders of mitral, aortic and tricuspid valves; G30.9 Alzheimer's disease, unspecified; F02.80 Dementia in other diseases classified elsewhere, unspecified severity, without behavioral disturbance, psychotic disturbance, mood disturbance, and anxiety; Z79.899 Other long term (current) drug therapy; Z88.5 Allergy status to narcotic agent; Z87.19 Personal history of other diseases of the digestive system; Z11.52 Encounter for screening for COVID-19; Z11.59 Encounter for screening for other viral diseases
CPT/HCPCS: 96376; 96361; 96365; 96366; 99285; 36415; 93005; 80053; 82150; 83690; 84484; 85025 ×2; 85610 ×2; 85730; 81001; 87636; 71046; 71275; G0378 ×2; J1644 ×2; Q9967